=== PATIENT | female | born 1975 | race Caucasian/White ===

== ENCOUNTER 2019-08-18 13:46 | Emergency (ER) | payer SELFPAY ==
[2019-08-18 13:51] VITALS: BP 174/104; PULSE 90; RESP 20; TEMP 36.4; O2SAT 99; BMI 51.5
--- NOTE | 2019-08-18 14:24 | XR_ITS ---
WS: [id number] Portable AP upright chest, 08/18/2019 Clinical Data: admission Comparison: Portable chest, 06/12/2017. Findings: No nodules, masses or effusions are seen. The heart is normal. The pulmonary vascularity is not increased. No pneumonia or pneumothorax is seen. XR/XR chest 1V portable [id number] Impression: Negative chest.
--- NOTE | 2019-08-18 14:35 | ED_ITS ---
Entered by Veronica Couch, acting as scribe for Evonne Klein MD Aug 18, 2019 13:46 HPI - SOB/Dyspnea General: Chief Complaint: Shortness of Breath/Dyspnea Stated Complaint: SOB Time Seen by Provider: 08/18/19 14:35 Source: patient and RN notes reviewed Mode of arrival: ambulatory Limitations: no limitations History of Present Illness: HPI Narrative: 44 yo female presents to ED with complaints of shortness of breath. The patient states she has had this for 4 days intermittently. She said it is when she lays down and she will start gasping for breath. The patient has asthma but has not had to use an inhaler for a while. She said she has been a little nausea, lightheadedness, dizziness and a few pains in her chest. Today the chest pain was very sharp so she decided to come in to the ED. She quit smoking 9 years ago. MD elicited complaint: shortness of breath Pertinent past history: asthma Onset (ago): day(s) (4) Timing: intermittent Severity: moderate Exacerbating factors: lying flat Relieving factors: nothing Known history of: asthma Associated symptoms: Reports chest pain, dizziness, lightheadedness and nausea; Deny fever(s) or polyuria Treatment prior to arrival: none Related Data: Home oxygen amount: none Review of Systems General: Reports: 10 or more systems reviewed and unremarkable except in HPI and below Const: Denies: fever or chills Eyes: Denies: change in vision ENMT: Denies: throat pain Card: Reports: chest pain and lightheadedness GI: Reports: nausea : Denies: difficulty urinating Musc: Denies: muscle weakness Skin/Breast: Denies: rash Neuro: Reports: dizziness Psych: Denies: hopelessness or suicidal ideation Endo: Denies: excessive urination Wilbert/Lymph: Denies: easy bruising or easy bleeding All/Imm: Denies: hives PFSH ED PFSH: Statuses (acute, chronic, etc) shown below reflect problem list status as previously entered and may not be historically accurate Social History Smoking and tobacco status: former smoker Physical Exam Const: COMMON NORMALS: no apparent distress, average body habitus, oriented x3, no limitations, healthy appearing, alert and well nourished HENMT: COMMON NORMALS: normocephalic, external ears normal and external nose normal HEAD & SCALP: normocephalic NOSE: external nose normal EXTERNAL EAR: Yes external ears normal MOUTH: oral and palatal mucosa normal THROAT: posterior oropharynx normal Eye: COMMON NORMALS: PERRL, EOMs intact bilaterally, conjunctivae normal, no scleral icterus and normal visual diaz by confrontation CONJUNCTIVA: Yes conjunctivae normal PUPIL: Yes PERRL Neck/C-Spine: COMMON NORMALS: full ROM, no lymphadenopathy, supple, no meningeal signs and no JVD CERVICAL SPINE: Yes cervical ROM normal Lymph: LYMPHATIC: no lymphadenopathy noted Chest: COMMONS NORMALS: inspection of chest normal Resp: COMMON NORMALS: normal respiratory effort, no retractions, no use of accessory muscles and clear to auscultation bilaterally AUSCULTATION: clear to auscultation bilaterally Cardio: COMMON NORMALS: no JVD, regular rate, regular rhythm, no gallops, no clicks, no murmurs and no rub RATE: regular rate RHYTHM: regular rhythm GI: COMMON NORMALS: normal to inspection, nondistended, normoactive bowel sounds, soft to palpation and non-tender AUSCULTATION: Yes normoactive bowel sounds PALPATION: Yes soft : COMMON NORMALS: Yes no CVA tenderness BLADDER/KIDNEY EXAM: Yes no CVA tenderness Back/Pelvis: COMMON NORMALS: no CVA tenderness Extremity: COMMON NORMALS: normal to inspection Neuro: COMMON NORMALS: oriented x3 SENSORIUM/ORIENTATION: Yes alert MENINGEAL SIGNS: Yes no meningeal signs SPEECH: speech normal Psych: COMMON NORMALS: mental status grossly normal, thought process normal, cooperative, affect normal, speech normal, activity/motor behavior normal, denies hallucinations, denies homicidal ideation and denies suicidal ideation SPEECH: Yes normal speech THOUGHT PROCESS: normal thought process Skin: COMMON NORMALS: no rashes or lesions noted GENERAL SKIN EXAM: no rashes or lesions noted Course Vital Signs: Vital signs: Vital Signs Temperature 97.6 F 08/18/19 13:51 Pulse Rate 77 08/18/19 16:01 Respiratory Rate 18 08/18/19 15:58 Blood Pressure 174/104 08/18/19 13:51 Pulse Oximetry 96 08/18/19 15:58 MDM - SOB/Dyspnea Lab Data: Labs: Lab Results 08/18/19 08/18/19 Range/Units 14:30 14:30 WBC 8.7 (4.0-10.0) 10^3/ uL RBC 4.60 (4.1-5.3) 10^6/u L Hgb 13.1 (11.5-15.3) g/dL Hct 40.5 (37.0-47.0) % MCV 88.0 (81-99) fL MCH 28.5 (28.0-34.0) pg MCHC 32.3 (30.0-36.0) g/dL RDW 13.4 (12.1-15.1) % Plt Count 376 (130-400) 10^3/c mm MPV 8.9 (7.4-10.4) fL Neut % (Auto) 57.1 % Lymph % (Auto) 32.2 % Brule % (Auto) 6.2 % Eos % (Auto) 3.6 % Baso % (Auto) 0.6 % Neut # (Auto) 5.0 (1.8-7.7) 10^3/u L Lymph # (Auto) 2.8 (0.8-4.8) 10^3/u L Brule # (Auto) 0.5 (0.2-0.9) 10^3/u L Eos # (Auto) 0.3 (0.0-0.8) 10^3/u L Baso # (Auto) 0.1 (0.0-0.1) 10^3/u L Nucleated RBC % (a uto) 0 % Nucleated RBCs # 0.0 /100WBC Sodium 142 (136-145) mmol/L Potassium 4.0 (3.5-5.1) mmol/L Chloride 103 (98-107) mmol/L Carbon Dioxide 27 (22-29) mmol/L Anion Gap 16.0 (5-19) BUN 11 (6-20) mg/dL Creatinine 0.7 (0.5-0.9) mg/dL GFR Calculation 91.8 (90-130) mL/min Glucose 115 (65-115) mg/dL Calcium 9.5 (8.5-10.5) mg/dL Total Bilirubin 0.2 (0.15-1.2) mg/dL AST 16 (0-32) U/L ALT 12 (0-33) U/L Alkaline Phosphata se 80 (35-105) IU/L Total Protein 8.0 (6.6-8.7) g/dL Albumin 4.0 (3.5-5.2) g/dL Globulin 4.0 (1.3-4.6) g/dL Imaging Data^: CXR: Radiologist's impression: [address] [place] [address] XRay Report Signed Patient: Kelsi Blankenship #: [id number] : 1975Acct#:[id number] Age/Sex: 44 / FADM Date: 08/18/19 Loc: ERRoom/Bed: Attending Dr: Ordering Provider/Ordering MD: Marian Mcmahan Sr, HEIDI Date of Service: 08/18/19 Procedure(s): XR chest 1V portable [id number] Accession Number(s): [id number] Report Number: [id number] WS: [id number] Portable AP upright chest, 08/18/2019 Clinical Data: admission Comparison: Portable chest, 06/12/2017. Findings: No nodules, masses or effusions are seen. The heart is normal. The pulmonary vascularity is not increased. No pneumonia or pneumothorax is seen. XR/XR chest 1V portable [id number] Impression: Negative chest. Dictated By:Windy Grullon MD Signed By:Windy Grullon MDSigned Date/Time:08/18/19 1450 DD/ Discharge Plan Discharge Patient Disposition: Home, Self-Care Clinical Impression: Viral upper respiratory illness Condition: Stable Prescriptions: No Action No Known Home Medications RF: 0 Referrals: Parag Mcarthur FNP-C [Primary Care Provider] - Patient Instructions: Viral Syndrome - Adult Coding Level of Care Code ED Blood Donor Recruiter for Chg Fwd Exam Problem Focused The documentation recorded by the Khoa shaffer Valerie R, accurately reflects the service I personally performed and the decisions made by Ernie taylor Megan, MD Aug 18, 2019 13:46
[2019-08-18 14:41] LABS: Basophils # 0.1 10^3/uL (0.0-0.1); Basophils % 0.6 %; Eosinophils # 0.3 10^3/uL (0.0-0.8); Eosinophils % 3.6 %; Hematocrit 40.5 % (37.0-47.0); Hemoglobin 13.1 g/dL (11.5-15.3); Lymphocytes # 2.8 10^3/uL (0.8-4.8); Lymphocytes % 32.2 %; Mean Corpuscular HGB Conc 32.3 g/dL (30.0-36.0); Mean Corpuscular Hemoglobin 28.5 pg (28.0-34.0); Mean Platelet Volume 8.9 fL (7.4-10.4); Monocytes # 0.5 10^3/uL (0.2-0.9); Monocytes % 6.2 %; Neutrophils % 57.1 %; Nucleated Red Blood Cells % 0 %; Platelet Count 376 10^3/cmm (130-400); Red Cell Distribution Width 13.4 % (12.1-15.1); White Blood Count 8.7 10^3/uL (4.0-10.0)
[2019-08-18 14:55] VITALS: O2SAT 96
[2019-08-18 14:58] LABS: Alanine Aminotransferase 12 U/L (0-33); Alkaline Phosphatase 80 IU/L (35-105); Aspartate Amino Transferase 16 U/L (0-32); Blood Urea Nitrogen 11 mg/dL (6-20); Calcium 9.5 mg/dL (8.5-10.5); Carbon Dioxide 27 mmol/L (22-29); Chloride 103 mmol/L (98-107); Glomerular Filtration Rate 91.8 mL/min (90-130); Glucose 115 mg/dL (65-115); Sodium 142 mmol/L (136-145); Total Bilirubin 0.2 mg/dL (0.15-1.2)
[2019-08-18 15:58] VITALS: PULSE 74; RESP 18; O2SAT 96
[2019-08-18 16:01] VITALS: PULSE 77
[2019-08-18 16:45] VITALS: BP 166/90; PULSE 78; RESP 20; O2SAT 98
--- NOTE | 2019-09-08 | PC.NURSE ---
Mode wrap applied to left knee and patient educated on RICE method.
== END 2019-08-18 16:45 | disposition home or self-care (01) ==
PROVIDERS: Nurse Practitioner Family; Emergency Provider Emergency Medicine; Family Provider Nurse Practitioner; PCP Nurse Practitioner
DX: J98.8 Other specified respiratory disorders (principal); J45.909 Unspecified asthma, uncomplicated; Z87.891 Personal history of nicotine dependence
CPT/HCPCS: 36415; 71045; 80053; 85025; 94640; 99282; 99283; J7611

== ENCOUNTER 2019-09-07 18:41 | Emergency (ER) | payer SELFPAY ==
[2019-09-07 19:10] VITALS: BP 163/109; PULSE 74; RESP 18; TEMP 36.7; O2SAT 96; BMI 51.5
--- NOTE | 2019-09-07 19:27 | XR_ITS ---
WS: [id number] XR knee LT 3V* [id number] REASON FOR EXAM: injury FINDINGS: The meniscal spaces are normal. The patella was seen in normal position. The patella femoral articulation normal. The patellotibial space normal. No definite fractures seen. XR/XR knee LT 3V* [id number] IMPRESSION: Negative left knee.
--- NOTE | 2019-09-07 23:03 | W.ED.EXTPRO ---
HPI - Extremity Problem General: Chief complaint: Extremity Problem,Nontraumatic Stated complaint: LEFT LEG INJURY Time Seen by Provider: 09/07/19 22:59 History of Present Illness: HPI Narrative: Patient comes in today with left knee pain. Patient reports slipping on the ice yesterday and twisting her left knee. Patient has had previous surgery to the knees for ligament injuries. Patient appears well. No obvious deformity is noted to the leg. MD Complaint: extremity pain Review of Systems General: Reports: 10 or more systems reviewed and unremarkable except in HPI and below PFSH ED PFSH: Social History Smoking and tobacco status: former smoker Female Reproductive History: Date of last menstrual period: 09/27/04 Physical Exam Const: COMMON NORMALS: no apparent distress and oriented x3 GENERAL APPEARANCE: cooperative HENMT: COMMON NORMALS: normocephalic, external ears normal, EAC's normal, TM's normal bilaterally and external nose normal HEAD & SCALP: normal to inspection and normocephalic FACE & SINUS: normal facial exam NOSE: external nose normal GENERAL EAR: hearing not grossly impaired EXTERNAL EAR: Yes external ears normal EXTERNAL AUDITORY CANAL: EAC's normal TYMPANIC MEMBRANE: TM's normal bilaterally MOUTH: oral and palatal mucosa normal THROAT: posterior oropharynx normal Eye: COMMON NORMALS: PERRL and EOMs intact bilaterally PUPIL: Yes PERRL Neck/C-Spine: COMMON NORMALS: full ROM and no lymphadenopathy Lymph: LYMPHATIC: no lymphedema noted Chest: COMMONS NORMALS: inspection of chest normal and palpation of chest normal Resp: COMMON NORMALS: normal respiratory effort and clear to auscultation bilaterally AUSCULTATION: clear to auscultation bilaterally Cardio: COMMON NORMALS: regular rate and regular rhythm RATE: regular rate RHYTHM: regular rhythm GI: COMMON NORMALS: normal to inspection, nondistended, normoactive bowel sounds and non-tender : COMMON NORMALS: Yes no CVA tenderness BLADDER/KIDNEY EXAM: Yes no CVA tenderness Back/Pelvis: COMMON NORMALS: no CVA tenderness and thoracic and lumbar spine normal to inspection Extremity: NARRATIVE EXTREMITY EXAM: Guarded movement is noted to the left knee. Patient is able to manipulate leg without any sign of weakness. Normal stability is noted to the leg. Patella is intact. No obvious deformity is noted. GENERAL: Yes edema Neuro: COMMON NORMALS: oriented x3, moves all extremities and no focal motor deficits Psych: COMMON NORMALS: mental status grossly normal and cooperative Skin: COMMON NORMALS: no rashes or lesions noted GENERAL SKIN EXAM: no rashes or lesions noted Course Vital Signs: Vital signs: Vital Signs Temperature 98.1 F 09/07/19 19:10 Pulse Rate 74 09/07/19 19:10 Respiratory Rate 18 09/07/19 19:10 Blood Pressure 163/109 09/07/19 19:10 Pulse Oximetry 96 09/07/19 19:10 MDM - Extremity (Nontraumatic) MDM Narrative: Medical decision making narrative: Patient comes in after injury to the left knee. On exam patient appears well. Patient appears in no acute distress. No obvious deformity is noted to the leg. Some simple bruising is noted to the inner thigh. No redness or edema is noted. Differential diagnosis includes sprain, meniscal injury, ligament injury, fracture. X-rays noted no fracture or dislocation. Reviewed exam with patient with recommendations for treatment follow-up. Patient reports understanding and agreed to plan. Discharge Plan Discharge Patient Disposition: Home, Self-Care Clinical Impression: Injury of knee, left Qualifiers: Encounter type: initial encounter Qualified Code(s): S89.92XA - Unspecified injury of left lower leg, initial encounter Condition: Stable Prescriptions: New diclofenac sodium 75 mg tablet,delayed release (DR/EC) 75 mg PO BID Qty: 14 RF: 0 hydrocodone-acetaminophen 5-325 mg tablet 1 tab PO Q6H PRN (Reason: pain (scale score 7-10)) Qty: 7 RF: 0 Discharge Orders: Discharge Order (Routine); Ordered 09/07/19 Ordered By: Vito Perkins Referrals: Parag Mcarthur, OUTPATIENT THERAPISTClarisseC [Primary Care Provider] - Discharge Diet: Usual diet Discharge Activity: Increase activity as tolerated Patient Instructions: Knee Sprain (ED) Activity Restrictions/Additional Instructions: Activity as tolerated Elastic wrap for comfort Use Crutches or walker for ambulation Drink plenty of water with medications Follow-up with primary care in one week for recheck Coding Level of Care Code ED Interrelated Special Education Teacher for Deondre Mc
[2019-09-07] MEDS: ketorolac 30 mg/mL INJ IM (23:13)
[2019-09-07] MEDS: HYDROcodone-acetaminophen 5-325 mg Tablet 1 TAB PO (23:13)
[2019-09-07 23:57] VITALS: BP 142/96; PULSE 69; RESP 18; TEMP 36.5; O2SAT 95
== END 2019-09-07 23:40 | disposition home or self-care (01) ==
PROVIDERS: Emergency Provider Nurse Practitioner Family; Family Provider Nurse Practitioner; PCP Nurse Practitioner
DX: S89.92XA Unspecified injury of left lower leg, initial encounter (principal); Z87.891 Personal history of nicotine dependence; Z98.890 Other specified postprocedural states; W00.0XXA Fall on same level due to ice and snow, initial encounter
CPT/HCPCS: 73562; 96372; 99281; 99283; J1885

== ENCOUNTER 2020-03-24 11:29 | Emergency (ER) | payer SELFPAY ==
[2020-03-24 11:44] VITALS: BP 139/105; PULSE 90; RESP 18; TEMP 37.1; O2SAT 95; BMI 51.5
[2020-03-24] MEDS: diphenhydrAMINE 50 mg/mL SDV 1mL IVP (12:20)
[2020-03-24] MEDS: ketorolac 30 mg/mL INJ 10 MG IVP (12:21)
[2020-03-24] MEDS: metoclopramide 5 mg/mL SDV 2 mL 10 MG IV (12:21)
[2020-03-24] MEDS: sodium chloride 0.9% 1,000 ML 999 ML IV (12:21)
--- NOTE | 2020-03-24 12:29 | ED_ITS ---
HPI - Headache General: Chief Complaint: Headache Stated Complaint: H/A Time Seen by Provider: 03/24/20 11:43 Source: patient Mode of arrival: ambulatory Limitations: no limitations History of Present Illness: HPI Narrative: Kelsi is a nice 44-year-old female who comes in complaining of headache for the past 3 days. She states this feels like her typical migraine. She states it came on gradually and was not a sudden onset thunderclap type headache. She denies any neck pain or stiffness or fever. She has photophobia and phonophobia. She has nausea vomiting with these typically but this time is not. This headache is been present for the past 3 days and is getting progressively worse. Patient is had to come to the ER before to get IV medication to resolve her headaches. Currently the patient states that her headache is severe and has been waxing and waning in intensity for the past 3 days. Associated symptoms: Deny chest pain, confusion, diaphoresis, fever(s), lightheadedness, malaise, nausea, pre-syncope, rash, syncope or vomiting Review of Systems Const: Denies: fever(s), chills, body aches, fatigue, malaise or diaphoresis Eyes: Denies: change in vision, blurry vision, photophobia, eye discomfort, eye discharge, eye redness or yellow eyes ENMT: Denies: throat pain, odynophagia, hoarseness, swelling of lips/tongue, ear or mastoid pain, ear discharge, change in hearing or nasal discharge Card: Denies: chest pain, palpitations, irregular heart rhythm, edema, lightheadedness, syncope, pre-syncope, dyspnea on exertion or orthopnea Resp: Denies: dyspnea, productive cough, non-productive cough, wheezing, hemoptysis or chest congestion GI: Denies: abdominal pain, nausea, vomiting, hematemesis, coffee ground emesis, heartburn, diarrhea, constipation, GI cramping, hematochezia or melena : Denies: flank pain, dysuria, urinary frequency, urinary urgency or hemat uria Musc: Denies: neck pain, back pain, extremity pain, extremity swelling, joint pain, joint swelling, joint redness, joint warmth or joint stiffness Skin/Breast: Denies: rash, pruritus, erythema, skin pain or skin tenderness Neuro: Reports: headache(s); Denies: numbness in extremities, weakness in extremities, sensory changes, lack of coordination, difficulty walking, dizziness, vertigo, confusion, Slurred speech present or seizure-like activity Wilbert/Lymph: Denies: easy bruising, easy bleeding, petechiae, purpura or enlarged lymph nodes All/Imm: Denies: urticaria, throat swelling, tongue swelling, facial swelling or acute wheezing PFSH ED PFSH: Medical History (Updated 03/24/20 @ 12:59 by Mel Spaulding) Migraines Social History Smoking and tobacco status: former smoker Female Reproductive History: Date of last menstrual period: 09/27/04 Physical Exam Const: COMMON NORMALS: no acute distress, patient oriented x3, no limitations and alert GENERAL APPEARANCE: cooperative HENMT: COMMON NORMALS: normocephalic, atraumatic, external ears normal, EAC's normal and Normal external nose present HEAD & SCALP: normal to inspection, normocephalic and atraumatic FACE & SINUS: normal facial exam and face symmetric NOSE: Normal external nose present and Normal nares present EXTERNAL EAR: Yes external ears normal EXTERNAL AUDITORY CANAL: EAC's normal MOUTH: Normal oral and palatal mucosa present, lip normal and tongue normal Eye: COMMON NORMALS: Equal, round and reactive pupils present and conjunctivae normal GENERAL EYE: appearance normal, both eyes and all related structures ALIGNMENT: Yes alignment normal PERIORBITAL: periorbital findings normal EYELID: eyelids normal CONJUNCTIVA: Yes conjunctivae normal SCLERA: sclerae normal PUPIL: Yes Equal, round and reactive pupils present Neck/C-Spine: COMMON NORMALS: full ROM, no lymphadenopathy, supple, no meningeal signs and no JVD GENERAL: Yes normal visual inspection and Yes trachea midline Chest: COMMONS NORMALS: normal inspection of the chest and normal palpation of entire chest wall Resp: COMMON NORMALS: normal respiratory effort, No retractions, No use of accessory muscles and clear to auscultation bilaterally EFFORT & INSPECTION: Yes able to speak in complete sentences and Yes symmetric chest movement AUSCULTATION: clear to auscultation bilaterally, no crackles, no rales, no rhonchi and no wheezes Cardio: COMMON NORMALS: no JVD, regular rate, regular rhythm, S1 normal heart sound present and S2 normal heart sound present RATE: regular rate RHYTHM: regular rhythm HEART SOUNDS: S1 normal heart sound present, S2 normal heart sound present, no click, no gallops, no murmurs and no rubs GI: COMMON NORMALS: Soft to palpation and No hepatosplenomegaly present PALPATION: Yes Soft to palpation, No Tenderness to palpation present (GI), No Guarding due to palpation present (GI), No Rigid due to palpation, Yes No hepatosplenomegaly present, No Hernia present, No Palpable mass present and No Pulsatile mass present : COMMON NORMALS: Yes no CVA tenderness BLADDER/KIDNEY EXAM: Yes no CVA tenderness EXTERNAL FEMALE EXAM: No Hernia present Back/Pelvis: COMMON NORMALS: no CVA tenderness, thoracic and lumbar spine normal to inspection, no thoracic nor lumbar tenderness and thoraco-lumbar ROM normal Extremity: COMMON NORMALS: normal to inspection, full ROM, capillary refill n ormal, no joint enlargement, no clubbing, cyanosis or edema and no calf tenderness Neuro: COMMON NORMALS: patient oriented x3, CN's II-XII intact bilaterally, moves all extremities, no focal motor deficits and no sensory deficits noted SENSORIUM/ORIENTATION: Yes alert MENINGEAL SIGNS: Yes no meningeal signs SPEECH: speech normal Psych: COMMON NORMALS: mental status grossly normal, Normal thought process present, cooperative, normal affect, speech normal and activity/motor behavior normal SPEECH: Yes normal speech THOUGHT PROCESS: Normal thought process present Skin: COMMON NORMALS: no rashes or lesions noted, turgor normal, no jaundice, no petechiae and no mottling GENERAL SKIN EXAM: no rashes or lesions noted and turgor normal Course Vital Signs: Vital signs: Vital Signs Temperature 98.7 F 03/24/20 11:44 Pulse Rate 90 03/24/20 11:44 Respiratory Rate 18 03/24/20 11:44 Blood Pressure 139/105 03/24/20 11:44 Pulse Oximetry 95 03/24/20 11:44 MDM - Headache MDM Narrative: Medical decision making narrative: 1256 -patient is feeling much better and is ready to go home. Her headache is almost completely resolved. Patient does not present with a history or physical exam concerning for subarachnoid hemorrhage or meningitis. Patient has recurrent headache that feels like her typical migraines. The patient did not had a sudden onset thunderclap type headache and does not have any neck pain or stiffness. Her symptoms have resolved with typical migraine medications. I do not believe the patient needs any further evaluation at this time as there is no fever, no rashes or concern for subarachnoid hemorrhage based on history. Discharge Plan Discharge Patient Disposition: Home Clinical Impression: Migraines Qualifiers: Migraine type: unspecified Status migrainosus presence: with status migrainosus Intractability: not intractable Qualified Code(s): G43.901 - Migraine, unspecified, not intractable, with status migrainosus Condition: Stable Prescriptions: No Action Tylenol Extra Strength 500 mg Tablet 1,000 mg PO PRN RF: 0 Aleve 220 mg Tablet 440 mg PO PRN RF: 0 Discharge Orders: Discharge Order (Routine); Ordered 03/24/20 Ordered By: Mel Spaulding Referrals: Parag Mcarthur, DIRECTOR FUNDRAISING-C [Primary Care Provider] - 1-3 days Discharge Diet: Advance as tolerated Discharge Activity: Increase activity as tolerated Patient Instructions: Migraine Headache (ED) Activity Restrictions/Additional Instructions: Please return to the ER immediately for any of the signs or symptoms listed on your discharge instruction sheets, worsening/changing of your symptoms, you are not getting better as quickly as expected, or for ANY other cause or concerns. Coding Level of Care Code ED Tape Stringer for [place]herg Fwd Exam Comprehensive
[2020-03-24 13:30] VITALS: BP 121/79; PULSE 80; RESP 18; O2SAT 99
== END 2020-03-24 13:30 | disposition home or self-care (01) ==
PROVIDERS: Emergency Provider Emergency Medicine; PCP Nurse Practitioner
DX: G43.901 Migraine, unspecified, not intractable, with status migrainosus (principal); Z87.891 Personal history of nicotine dependence
CPT/HCPCS: 12345; 96361; 96374; 96375; 99282; 99283; J0131; J1200; J1885; J2765; J7030

== ENCOUNTER 2022-05-30 12:05 | Inpatient (IN) | payer SELFPAY ==
[2022-05-30 12:51] VITALS: BP 119/73; PULSE 78; RESP 15; TEMP 36.8; O2SAT 97
--- NOTE | 2022-05-30 15:28 | CTR_ITS ---
PROCEDURE INFORMATION: Exam: CT Abdomen And Pelvis With Contrast Exam date and time: 05/30/2022 4:32 PM Age: 46 years old Clinical indication: Nausea; Prior surgery; Additional info: Right sided abdominal pain, with nausea TECHNIQUE: Imaging protocol: Computed tomography of the abdomen and pelvis with contrast. Radiation optimization: All CT scans at this facility use at least one of these dose optimization techniques: automated exposure control; mA and/or kV adjustment per patient size (includes targeted exams where dose is matched to clinical indication); or iterative reconstruction. Contrast material: OMNIPAQUE 350; Contrast volume: 95 ml; Contrast route: INTRAVENOUS (IV); COMPARISON: CT chest abd pel w con* 06/12/2017 9:53 PM RADIATION DOSE METRICS: Total DLP (mGy-cm): 1249.86 FINDINGS: Lungs: There are calcified granulomas at the lung bases. Liver: There is focal hypodensity in the left lobe of the liver adjacent to the falciform ligament, likely focal fatty change. There is mild enlargement of the liver. Liver measures 21 cm in height. Gallbladder and bile ducts: There is borderline gallbladder wall thickening measuring just over 3 mm. Pancreas: The pancreas is normal. Spleen: The spleen is normal. Adrenal glands: The adrenal glands are normal. Kidneys and ureters: The kidneys are normal. There is no evidence of hydronephrosis. There is no evidence of renal or ureteral calcifications. Stomach and bowel: Unremarkable. No obstruction. No mucosal thickening. Appendix: Not identified Intraperitoneal space: There is no evidence of free intraperitoneal fluid. Vasculature: There is no evidence of an abdominal aortic aneurysm. Lymph nodes: There is no evidence of lymphadenopathy. Urinary bladder: Unremarkable as visualized. Reproductive: There has been a hysterectomy. There is probable 1.6 cm sized right adnexal cyst. Bones/joints: There is multilevel spinal stenosis. The lumbar spine demonstrates moderate degenerative changes at multiple levels. The stenosis is most severe at the L4-L5 level. Soft tissues: There is a small umbilical hernia containing only fat. Other findings: Compared with 06/12/2017 the patient appears to have a significant weight loss. CT/CT abdomen pelvis w con* [id number] IMPRESSION: 1. Question of mild gallbladder wall thickening 2. Lumbar stenosis 3. No definite acute finding.
--- NOTE | 2022-05-30 15:35 | W.ED.ABDPA2 ---
HPI - Abdominal Pain General: Chief Complaint: Abdominal Pain Stated Complaint: abd pain Time Seen by Provider: 05/30/22 15:00 History of Present Illness: 46-year-old female presents emergency department chief complaint of ongoing right upper and right lower abdominal pain has been ongoing progressively worse last couple of days she reports having some moderate nausea with it and anorexia reports no fevers or chills. The patient reports no back pain or flank pain or any dysuria, the patient presents to the ER for further assessment and management. Associated Symptoms: Reports nausea; Denies chills and fever(s) Related Data: Date of Last Menstrual Period: 09/27/04 Review of Systems General: Reports: 10 or more systems reviewed and unremarkable except in HPI and below Const: Denies: fever(s), chills, fatigue or malaise Eyes: Denies: change in vision or blurry vision Card: Denies: chest pain or palpitations Resp: Denies: dyspnea or productive cough GI: Reports: abdominal pain and nausea : Denies: flank pain Musc: Denies: extremity pain or extremity swelling Skin/Breast: Denies: rash or pruritus Neuro: Denies: headache(s) Psych: Denies: anxiety or depression Wilbert/Lymph: Denies: easy bleeding All/Imm: Denies: urticaria, throat swelling or facial swelling PFSH ED PFSH: Medical History Migraines Social History Smoking and tobacco status: former smoker Female Reproductive History: Date of last menstrual period: 09/27/04 Physical Exam Const: COMMON NORMALS: no acute distress, patient oriented x3 and healthy appearing HENMT: COMMON NORMALS: normocephalic and atraumatic HEAD & SCALP: normocephalic and atraumatic Eye: COMMON NORMALS: Equal, round and reactive pupils present and EOMs intact bilaterally PUPIL: Yes Equal, round and reactive pupils present Neck/C-Spine: COMMON NORMALS: full ROM, supple and no JVD Lymph: LYMPHATIC: no lymphadenopathy noted Chest: COMMONS NORMALS: normal inspection of the chest and normal palpation of entire chest wall Resp: COMMON NORMALS: normal respiratory effort, No retractions and clear to auscultation bilaterally EFFORT & INSPECTION: Yes able to speak in complete sentences and Yes symmetric chest movement AUSCULTATION: clear to auscultation bilaterally Cardio: COMMON NORMALS: no JVD, regular rate and regular rhythm RATE: regular rate RHYTHM: regular rhythm GI: OTHER: Patient has appreciable right upper quadrant right lower quadrant abdominal pain positive McBurney's point tenderness and Gunn's sign appreciated. No rebound tenderness noted. : COMMON NORMALS: Yes no CVA tenderness BLADDER/KIDNEY EXAM: Yes no CVA tenderness Back/Pelvis: COMMON NORMALS: no CVA tenderness Extremity: COMMON NORMALS: normal to inspection and full ROM Neuro: COMMON NORMALS: patient oriented x3, CN's II-XII intact bilaterally, moves all extremities and no focal motor deficits Psych: COMMON NORMALS: mental status grossly normal, Normal thought process present, cooperative and normal affect THOUGHT PROCESS: Normal thought process present Skin: COMMON NORMALS: no rashes or lesions noted GENERAL SKIN EXAM: no rashes or lesions noted Course Vital Signs: Vital signs: Vital Signs Temperature 98.3 F 05/30/22 12:51 Pulse Rate 78 05/30/22 12:51 Respiratory Rate 15 05/30/22 12:51 Blood Pressure 119/73 05/30/22 12:51 Pulse Oximetry 97 05/30/22 12:51 Oxygen Delivery Me thod 05/30/22 12:51 MDM - Abdominal Pain Medical Decision Making Due to the patient's symptoms and condition lab work imaging will be obtained medication provided for the patient associated symptoms we will continue to follow patient's lab work came back reassuring no obvious white count elevation lipase or transaminases or total bilirubin. However there was some gallbladder wall thickening which is recommended by radiology to get an ultrasound to further rule out gallbladder disease. The patient's ultrasound did reveal a positive Gunn sign gallbladder wall thickening as well as gallstones suggestive of early acute cholecystitis. Discussed the patient's case with Dr. Mancia on-call general surgeon in which there is recommended 2 different options patient could subsequently follow-up outpatient with him for further eval with a 10-day course of antibiotics or patient could be subsequently admitted. I spoke to the patient at length she is currently homeless with no place to go does not have any money for antibiotics in which she additionally has no social resources availability to her. Or transportation options. At this time due to multiple social roadblocks the patient is best well served to be admitted to the hospital for further evaluation and management. Lab Data 05/30/22 16:18 05/30/22 16:18 Labs/Radiology: Radiology Impressions Abdomen/Pelvis CT 05/30/22 15:28 IMPRESSION: 1. Question of mild gallbladder wall thickening 2. Lumbar stenosis 3. No definite acute finding. Abdomen Ultrasound 05/30/22 19:02 IMPRESSION: 1. Two gallstones. Findings suspicious for cholecystitis. 2. Mild fatty infiltration of the liver. 3. Incidental/nonacute findings are listed in the report. Laboratory Results WBC 7.6 10^3/uL (4.0-10.0) 05/30/22 16:18 RBC 4.68 10^6/uL (4.1-5.3) 05/30/22 16:18 Hgb 13.9 g/dL (11.5-15.3) 05/30/22 16:18 Hct 41.9 % (37.0-47.0) 05/30/22 16:18 MCV 89.5 fl (81-99) 05/30/22 16:18 MCH 29.7 pg (28.0-34.0) 05/30/22 16:18 MCHC 33.2 g/dL (30.0-36.0) 05/30/22 16:18 RDW 14.0 % (12.1-15.1) 05/30/22 16:18 Plt Count 380 10^3/cmm (130-400) 05/30/22 16:18 MPV 9.7 fL (7.4-10.4) 05/30/22 16:18 Neut % (Auto) 56.7 % 05/30/22 16:18 Lymph % (Auto) 33.0 % 05/30/22 16:18 [place] % (Auto) 7.5 % 05/30/22 16:18 Eos % (Auto) 2.0 % 05/30/22 16:18 Baso % (Auto) 0.5 % 05/30/22 16:18 Neut # (Auto) 4.34 10^3/uL (1.8-7.7) 05/30/22 16:18 Lymph # (Auto) 2.5 10^3/uL (0.8-4.8) 05/30/22 16:18 [place] # (Auto) 0.6 10^3/uL (0.2-0.9) 05/30/22 16:18 Eos # (Auto) 0.2 10^3/uL (0.0-0.8) 05/30/22 16:18 Baso # (Auto) 0.0 10^3/uL (0.0-0.1) 05/30/22 16:18 Nucleated RBC % (auto) 0 % 05/30/22 16:18 Nucleated RBCs # 0.0 /100WBC 05/30/22 16:18 Sodium 138 mmol/L (136-145) 05/30/22 16:18 Potassium 4.0 mmol/L (3.5-5.1) 05/30/22 16:18 Chloride 101 mmol/L (98-107) 05/30/22 16:18 Carbon Dioxide 28 mmol/L (22-29) 05/30/22 16:18 Anion Gap 13.0 (5-19) 05/30/22 16:18 BUN 7 mg/dL (6-20) 05/30/22 16:18 Creatinine 0.6 mg/dL (0.5-0.9) 05/30/22 16:18 GFR Calculation 108.6 mL/min (90-130) 05/30/22 16:18 Glucose 87 mg/dL (65-115) 05/30/22 16:18 Calculated Osmolality 283 mOsm/kg (285-295) L 05/30/22 16:18 Calcium 9.5 mg/dL (8.5-10.5) 05/30/22 16:18 Total Bilirubin 0.5 mg/dL (0.15-1.2) 05/30/22 16:18 AST 10 U/L (0-32) 05/30/22 16:18 ALT < 5 U/L (0-33) 05/30/22 16:18 Alkaline Phosphatase 84 U/L (35-105) 05/30/22 16:18 C-Reactive Protein 5.8 mg/L (0.0-4.9) H 05/30/22 16:18 Total Protein 7.9 g/dL (6.6-8.7) 05/30/22 16:18 Albumin 3.8 g/dL (3.5-5.2) 05/30/22 16:18 Globulin 4.1 g/dL (1.3-4.6) 05/30/22 16:18 Lipase 21 U/L (13-60) 05/30/22 16:18 HCG, Qual Negative (Negative) 05/30/22 16:18 Urine Color Brooke (Yellow) 05/30/22 15:50 Urine Appearance Clear (CLEAR) 05/30/22 15:50 Urine pH 5 (5-7) 05/30/22 15:50 Ur Specific [place] 1.025 (1.005-1.030) 05/30/22 15:50 Urine Protein Trace (Negative) 05/30/22 15:50 Urine Glucose (UA) Norm (Normal) 05/30/22 15:50 Urine Ketones Negative (Negative) 05/30/22 15:50 Urine Blood Neg (Negative) 05/30/22 15:50 Urine Nitrate Negative (Negative) 05/30/22 15:50 Urine Bilirubin Neg (Negative) 05/30/22 15:50 Urine Urobilinogen Norm mg/dL (Negative) 05/30/22 15:50 Ur Leukocyte Esterase Negative (Negative) 05/30/22 15:50 Urine RBC None /hpf (0-2) 05/30/22 15:50 Urine WBC None /hpf (0-5) 05/30/22 15:50 Ur Squamous Epith Cells None /hpf (0-5) 05/30/22 15:50 Amorphous Sediment Not Reportable 05/30/22 15:50 Urine Bacteria Trace /hpf (NONE) 05/30/22 15:50 Discharge Plan Discharge Patient Disposition: Admitted As Inpatient Clinical Impression: Cholecystitis, Abdominal pain Condition: Stable Coding Level of Care Code ED Wound Care Specialist for Chg Fwd Exam Comprehensive
[2022-05-30] MEDS: sodium chloride 0.9% 500 ML IV (16:14)
[2022-05-30] MEDS: ondansetron 2 mg/ML SDV 2 mL 4 MG IVP (16:15)
[2022-05-30] MEDS: ketorolac 30 mg/mL INJ IVP (16:15)
[2022-05-30 16:32] LABS: Basophils % 0.5 %; Eosinophils # 0.2 10^3/uL (0.0-0.8); Hematocrit 41.9 % (37.0-47.0); Hemoglobin 13.9 g/dL (11.5-15.3); Lymphocytes # 2.5 10^3/uL (0.8-4.8); Mean Corpuscular HGB Conc 33.2 g/dL (30.0-36.0); Mean Corpuscular Hemoglobin 29.7 pg (28.0-34.0); Mean Corpuscular Volume 89.5 fl (81-99); Mean Platelet Volume 9.7 fL (7.4-10.4); Monocytes # 0.6 10^3/uL (0.2-0.9); Monocytes % 7.5 %; Neutrophils # 4.34 10^3/uL (1.8-7.7); Neutrophils % 56.7 %; Nucleated Red Blood Cells % 0 %; Platelet Count 380 10^3/cmm (130-400); Red Blood Count 4.68 10^6/uL (4.1-5.3); White Blood Count 7.6 10^3/uL (4.0-10.0)
[2022-05-30 16:35] LABS: Add Urine Culture? No; Add Urine Microscopic? YES; Bacteria Urine TRACE /hpf; Bilirubin Urine Neg (Negative); Blood Urine Neg (Negative); Glucose Urine UA Norm (Normal); Ketones Urine Negative (Negative); Leukocyte Esterase Urine Negative (Negative); Nitrate Urine Negative (Negative); Protein Urine Trace (Negative); Specific Gravity, Urine 1.025 (1.005-1.030); Urine Appearance Clear (CLEAR); Urine Color Amber (Yellow); Urobilinogen Urine Norm (Negative); pH Urine 5 (5-7)
[2022-05-30 16:46] LABS: HCG, Serum Qual Negative (Negative)
[2022-05-30 16:55] LABS: Alanine Aminotransferase < 5 U/L (0-33); Albumin Level 3.8 g/dL (3.5-5.2); Alkaline Phosphatase 84 U/L (35-105); Aspartate Amino Transferase 10 U/L (0-32); Blood Urea Nitrogen 7 mg/dL (6-20); C Reactive Protein 5.8 mg/L (0.0-4.9); Calcium 9.5 mg/dL (8.5-10.5); Carbon Dioxide 28 mmol/L (22-29); Chloride 101 mmol/L (98-107); Globulin 4.1 g/dL (1.3-4.6); Glomerular Filtration Rate 108.6 mL/min (90-130); Glucose 87 mg/dL (65-115); Lipase 21 U/L (13-60); Osmolality Calculated 283 mOsm/kg (285-295); Sodium 138 mmol/L (136-145); Total Bilirubin 0.5 mg/dL (0.15-1.2); Total Protein 7.9 g/dL (6.6-8.7)
[2022-05-30] MEDS: iohexol 350 mg/mL 500 mL Btl (per mL) IV (16:58)
--- NOTE | 2022-05-30 19:02 | USR_ITS ---
PROCEDURE INFORMATION: Exam: US Abdomen, Limited; Right Upper Quadrant Exam date and time: 05/30/2022 7:16 PM Age: 46 years old Clinical indication: Abdominal pain; Patient HX: Chronic ruq pain x 6 months, intermittently, worse last 2 days. Surgical HX includes appy at age 16, hysterectomy, csections; Additional info: Gallbladder wall thickening on CT TECHNIQUE: Imaging protocol: Real time ultrasound of the abdomen with image documentation. Limited exam focused on the right upper quadrant. COMPARISON: CT abdomen pelvis w con* [id number] 05/30/2022 4:32 PM FINDINGS: Liver: Mildly increased echotexture in the liver, consistent with mild fatty infiltration. Gallbladder: 2 stones in the gallbladder with posterior shadowing, each stone measures 1.3 cm. Mild gallbladder wall thickening, the gallbladder wall measures 3.8 mm. No pericholecystic fluid. There is a positive sonographic Gunn's sign per report from the cardiovascular technologist. Biliary ducts: Normal. No stones. No dilation. Pancreas: The pancreas is unremarkable. No pancreatic ductal dilatation. Right kidney: The right kidney is unremarkable. Aorta: Visualized aorta is unremarkable. Inferior vena cava: Visualized IVC is unremarkable. Portal venous: Hepatopetal flow in the portal vein. Intraperitoneal space: No ascites. US/US abdomen limited [id number] IMPRESSION: 1. Two gallstones. Findings suspicious for cholecystitis. 2. Mild fatty infiltration of the liver. 3. Incidental/nonacute findings are listed in the report.
[2022-05-30] MEDS: piperacillin-tazobactam 3.375 GM in sodium chloride 0.9% (plus) 50 ML IV (21:54)
[2022-05-30 22:30] VITALS: BP 130/84; PULSE 80; RESP 16; O2SAT 98
[2022-05-31] VITALS (9 sets, daily range): BP systolic 114–152; BP diastolic 66–100; PULSE 66–83; RESP 16–20; TEMP 36.4–36.8; O2SAT 95–100; BMI 40.1
--- NOTE | 2022-05-31 00:53 | PC.NURSE ---
Report taken from Summer in ED. Patient arrived on floor at 2310 via wheelchair with three bags, one with a galaxy design, one blue and one pink bags; patient wearing own clothes. Patient A&O, VSS. 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 Patient states that she has been homeless for one year after leaving her . Patient also states that she has been depressed and has had thoughts of suicide in the past. Upon investigation, patient also states that she has struggled with drug addiction but states she is trying to stay clean. Patient upset because she states she hasn't had a meal in two days, but is currently NPO per doctor orders. Patient has been educated to use call light. Bed locked in lowest position, side rails up, and call light within reach. Patient states no further needs at this time.
[2022-05-31] MEDS: dextrose 5%-sod chloride 0.9% 1,000 ML 100 ML IV ×3 (01:31→15:43)
[2022-05-31] MEDS: morphine 4 mg/mL SDV 1 mL 2 MG IVP (03:02)
[2022-05-31] MEDS: piperacillin-tazobactam 3.375 GM in sodium chloride 0.9% (plus) 50 ML IV ×2 (08:29→17:48)
[2022-05-31] MEDS: morphine 4 mg/mL SDV 1 mL IVP (08:41)
--- NOTE | 2022-05-31 11:03 | P.HP_ITS ---
Providers/Chief Complaint Admitting Physician: Silverio Mancia DO Chief Complaint: abd pain History of Present Illness Kelsi Blankenship is a 46 year old female presenting the hospital with a 1 day history of right upper quadrant abdominal pain. She reports that she has been getting Attacks like this for the last 6 months. She denies any nausea, emesis, diarrhea, constipation, fever, chills, hematochezia or melena. Pain is sharp and located in the right upper quadrant. Pain does not radiate. Narcotics make the pain better food makes the pain worse. She is homeless. Review of Systems General: Reports: 10 or more systems reviewed and unremarkable except in HPI and below Medications/Allergies Home Medications Medication Instructions Recorded Confirmed Last Taken Type acetaminophen 500 mg tablet 1,000 mg PO PRN PRN Pain 03/24/20 05/30/22 05/30/22 History (Tylenol Extra Strength) naproxen sodium 220 mg tablet 440 mg PO PRN PRN Pain 03/24/20 05/30/22 Unknown History (Aleve) Allergies Allergy/AdvReac Type Severity Reaction Status Date / Time No Known Allergies Allergy Verified 05/30/22 15:25 PFSH Acute PFSH: Medical History Migraines Surgical History H/O: hysterectomy Hx of appendectomy Social History Smoking and tobacco status: former smoker Female Reproductive History: Date of last menstrual period: 09/27/04 Vitals/I&O/Wt Last Vital Signs Temp 97.7 F 05/31/22 08:00 Pulse 66 05/31/22 08:00 Resp 18 05/31/22 08:41 BP 117/71 05/31/22 08:00 Pulse Ox 96 05/31/22 08:00 O2 Del Method 05/31/22 08:00 05/30/22 05/31/22 05/31/22 22:59 06:59 14:59 Intake Total 550 / 550 0 / 550 400 / 400 Output Total 0 / 0 Balance 550 / 550 0 / 550 400 / 400 Weight last 48 hrs Weight 234 lb Weight 200 lb Physical Exam Narrative: General : Patient is well developed , no acute distress, oriented x3 Head : Normal cephalic, a-traumatic. Ears : Pinnae and external canal are normal. Hearing is normal. Eyes : PERRLA, Sclera and injection are normal. No conjunctival discharge. Nose : Mucous membranes are without erythema. Throat : buccal mucosa is normal, gums are without significant recession or hypertrophy. Lungs : Equal chest rise bilaterally, no use of accessory muscles, trachea is midline. Cor : Rate and rhythm are normal. Abdomen : Soft, ND, mild right upper quadrant tenderness, no g/r/m Extremities : No edema, no cyanosis or clubbing, dorsalis pedis pulses are present bilaterally, non-tender to palpation of calves. Upper extremities are normal bilaterally. Back : non-tender to palpation, no CVA tenderness. Neuro : CN II - XII intact, Upper and lower extremities have equal and full strength Data 05/30/22 16:18 05/30/22 16:18 A&P Assessment and plan (1) Acute calculous cholecystitis: Plan Antibiotics Regular diet, n.p.o. after midnight Laparoscopic cholecystectomy The risks and benefits of the procedure, including but not limited to, bleeding, infection, scar, numbness, pain, damage to surrounding structures, damage to common bile duct requiring additional surgery, conversion to an open procedure, were explained to the patient. He is understanding of the risks and wishes to proceed. Attestations Medical Necessity Statement*: Patient requires 2 more nights in the hospital for cholecystectomy and IV antibiotics Coding Level of Care Code Acute Scientific Informatics Project Leader for [facility] Diagnoses Acute calculous cholecystitis K80.00
--- NOTE | 2022-05-31 22:31 | PC.NURSE ---
PATIENT REQUESTED SOMETHING TO HELP HER SLEEP. PATIENT REQUEST FOR MED SENT TO DR ROE VIA SECURE MESSAGING. DR ROE PUT IN ORDER FOR DANIEL.
[2022-05-31] MEDS: diphenhydrAMINE 25 mg Capsule PO (22:35)
[2022-05-31] MEDS: HYDROcodone-acetaminophen 7.5-325 mg Tablet 1 TAB PO (22:35)
[2022-06-01] VITALS (23 sets, daily range): BP systolic 105–135; BP diastolic 70–89; PULSE 52–75; RESP 15–24; TEMP 36.4–37.1; O2SAT 90–98
[2022-06-01] MEDS: piperacillin-tazobactam 3.375 GM in sodium chloride 0.9% (plus) 50 ML IV ×2 (01:49→19:28)
--- NOTE | 2022-06-01 06:28 | PC.NURSE ---
20 GAUGE IV PACED IN RIGHT HAND. PATENT AND ASYMPTOMATIC.
[2022-06-01] MEDS: sodium chloride 0.9% 1,000 ML 30 ML IV (10:12)
--- NOTE | 2022-06-01 10:31 | W.PM.OPSUD ---
Surgery/Procedure H&P Update DATE OF PROCEDURE: June 01, 2022 DATE H&P PERFORMED: 05/31/22 PLANNED PROCEDURE: Operation Date: 06/01/22 10:50 Proposed Procedures p Laparoscopic Cholecystectomy(Not Applicable) - Silverio Mancia DO
--- NOTE | 2022-06-01 10:49 | ANES.PREANE2 ---
Pre-Anesthetic Assessment Height/Weight: Height 1.63 m Weight 106.141 kg Temp Pulse Resp BP Pulse Ox O2 Del Method 97.5 F L 75 18 127/82 98 06/01/22 08:12 06/01/22 08:12 06/01/22 08:12 06/01/22 08:12 06/01/22 08:12 06/01/22 08:12 Operation Date: 06/01/22 10:50 Proposed Procedures p Laparoscopic Cholecystectomy(Not Applicable) - Silverio Mancia DO Familial anesthetic complications: none Was Beta Murtaza taken within 24 hours: N/A Was Clonidine taken within 24 hours: N/A Last intake: Intake Last Liquid Date 05/31/22 Last Liquid Time 23:59 Last Solid Date 05/31/22 Last Solid Time 23:59 Social Tobacco (h/o smoking) and No alcohol Exam alert, oriented x 3, clear to auscultation bilaterally and regular rate & rhythm Airway Submandibular: within normal limits Cervical ROM: within normal limits Mallampati: Class II Dentition: false Metabolic Morbid Obesity Neuropsych Headache Anesthetic Plan ASA status: 2 Anesthesia: General (Mod RSI) Medications/Allergies Home Medications Medication Instructions Recorded Confirmed Last Taken Type acetaminophen 500 mg tablet 1,000 mg PO PRN PRN Pain 03/24/20 05/30/22 05/30/22 History (Tylenol Extra Strength) naproxen sodium 220 mg tablet 440 mg PO PRN PRN Pain 03/24/20 05/30/22 Unknown History (Aleve) Allergies Allergy/AdvReac Type Severity Reaction Status Date / Time No Known Allergies Allergy Verified 05/30/22 15:25 Current Medications Generic Name Dose Route Start Last Admin Trade Name Ladonna PRN Reason Stop Dose Admin Hydrocodone Bitart/Acetaminophen 1 tab 05/31/22 11:16 05/31/22 22:35 Hydrocodone-Acetaminophen 7.5-325 Mg Tablet PO 1 tab Q4H PRN Administration MODERATE PAIN Dextrose/Sodium Chloride 1,000 mls @ 100 mls/hr 05/31/22 01:00 05/31/22 15:43 Dextrose 5%-Sod Chloride 0.9% IV 100 mls/hr .Q10H CLAUDIA Administration Piperacillin Sod/Tazobactam 50 mls @ 12.5 mls/hr 05/31/22 09:00 06/01/22 01:49 Sod 3.375 gm/ Sodium Chloride IV 12.5 mls/hr Q8H CLAUDIA Administration Protocol Sodium Chloride 1,000 mls @ 30 mls/hr 06/01/22 10:00 06/01/22 10:12 Sodium Chloride 0.9% IV 06/02/22 09:59 30 mls/hr .Q24H CLAUDIA Administration Morphine Sulfate 4 mg 05/31/22 07:25 05/31/22 08:41 Morphine 4 Mg/Ml Sdv 1 Ml IVP 4 mg Q4H PRN Administration SEVERE PAIN PFSH Anesthesia Medical History Migraines Surgical History H/O: hysterectomy Hx of appendectomy Social History Smoking and tobacco status: former smoker Female Reproductive History Date of last menstrual period: 09/27/04 Data Anesthesia 05/30/22 16:18 05/30/22 16:18 Short CBC 05/30/22 Range/Units 16:18 WBC 7.6 (4.0-10.0) 10^3/uL Hgb 13.9 (11.5-15.3) g/dL Hct 41.9 (37.0-47.0) % MCV 89.5 (81-99) fl Plt Count 380 (130-400) 10^3/cmm Neut % (Auto) 56.7 % Neut # (Auto) 4.34 (1.8-7.7) 10^3/uL BMP 05/30/22 16:18 Sodium 138 Potassium 4.0 Chloride 101 Carbon Dioxide 28 BUN 7 Creatinine 0.6 Glucose 87 Calcium 9.5 Liver Function 05/30/22 Range/Units 16:18 Total Bilirubin 0.5 (0.15-1.2) mg/dL AST 10 (0-32) U/L ALT < 5 (0-33) U/L Alkaline Phosphatase 84 (35-105) U/L Albumin 3.8 (3.5-5.2) g/dL Urine 05/30/22 Range/Units 15:50 Urine Color [place] (Yellow) Urine Appearance Clear (CLEAR) Urine pH 5 (5-7) Ur Specific [place] 1.025 (1.005-1.030) Urine Protein Trace (Negative) Urine Glucose (UA) Norm (Normal) Urine Ketones Negative (Negative) Urine Nitrate Negative (Negative) Urine Bilirubin Neg (Negative) Ur Leukocyte Esterase Negative (Negative) Urine RBC None (0-2) /hpf Urine WBC None (0-5) /hpf Coags 05/30/22 16:18 C-Reactive Protein 5.8 H Cardiac Studies: No Data to Display
--- NOTE | 2022-06-01 11:19 | P.OP_ITS ---
Operative Report Date of procedure: June 01, 2022 Pre-op diagnosis: Acute calculus cholecystitis Post-op diagnosis: other (Chronic calculus cholecystitis) Procedure done: Laparoscopic cholecystectomy Specimens removed/disposition: Gallbladder Surgeon: Dr. Silverio Mancia DO Anesthesia: General Estimated blood loss (mL): 5 Complications: None apparent Brief History: Macho Ardon is a very pleasant 46-year-old homeless comes in with 1 day history of right upper quadrant abdominal pain. Ultrasound diagnosis clinical diagnosis was acute calculus cholecystitis. Laparoscopic cholecystectomy was indicated. Risks and benefits were explained and documented. Procedure: Patient was wheeled into the operative room and placed on the OR table in a supine position. Abdomen was inspected prepped and draped in usual sterile fashion. Time-out was performed and all present were in agreement. A 15 blade scalp was used to make a stab incision in the left upper quadrant and intra- abdominal insufflation was achieved using a Veress needle. After localizing the tissue incisions were made and a 5 millimeter trocar was placed into the umbilicus as well as 2 in the right upper quadrant. A 12 millimeter trocar was placed in the epigastrium. Gallbladder was grasped and elevated. The triangle of [place]ot was carefully dissected using blunt dissection and electrocautery until the triangle of [place] clearly identified. The cystic duct was clipped proximally and double clipped distally. The duct was then ligated proximally. The cystic artery was doubly clipped and ligated. The gallbladder was then removed from the liver bed using electrocautery. The gallbladder was removed from the abdomen using an Endo-Catch bag through the epigastric incision. The liver bed was inspected and no bleeding was seen. The abdomen was irrigated and suctioned. All ports removed. Skin was washed and dried. Incisions were closed with 3-0 and 4-O Vicryl in a subcuticular interrupted fashion. Skin glue was applied. Patient tolerated the procedure well.
[2022-06-01] MEDS: ondansetron 2 mg/ML SDV 2 mL 4 MG IVP ×2 (11:54→19:28)
[2022-06-01] MEDS: fentaNYL 50 mcg/mL INJ 2mL IVP (12:02)
[2022-06-01] MEDS: dextrose 5%-sod chloride 0.9% 1,000 ML 100 ML IV (16:00)
[2022-06-01] MEDS: HYDROcodone-acetaminophen 7.5-325 mg Tablet 1 TAB PO (16:06)
[2022-06-01] MEDS: heparin 5,000 unit/mL INJ 1 mL 5000 UNIT SUBCUT (16:06)
[2022-06-01] MEDS: morphine 4 mg/mL SDV 1 mL IVP (19:28)
[2022-06-02] VITALS (8 sets, daily range): BP systolic 104–146; BP diastolic 63–86; PULSE 58–102; RESP 15–18; TEMP 36.7–36.8; O2SAT 91–96
[2022-06-02] MEDS: HYDROcodone-acetaminophen 7.5-325 mg Tablet 1 TAB PO ×4 (00:05→21:42)
[2022-06-02] MEDS: heparin 5,000 unit/mL INJ 1 mL 5000 UNIT SUBCUT ×4 (00:05→20:51)
--- NOTE | 2022-06-02 02:55 | PC.NURSE ---
PATIENT COMPLAINING OF MILD CHEST PAIN AND BELCHING. THIS NURSE EDUCATED PATIENT THAT AMBULATION AND GETTING UP TO MOVE AROUND COULD IMPROVE CHEST PAIN/GAS AFTER SURGERY. PATIENT AMBULATED HALLWAY WITH IV POLE x3 AND REPORTED IMPROVED CHEST PAIN AND BELCHING. PATIENT NOW RESTING IN BED WATCHING TV, BED LOCKED IN LOWEST POSITION WITH SIDE RAILS UP AND EDUCATED TO PRESS CALL LIGHT IF PATIENT NEEDED ANYTHING. PATIENT STATED NO FURTHER NEEDS AT THIS TIME.
[2022-06-02] MEDS: morphine 4 mg/mL SDV 1 mL IVP (03:36)
[2022-06-02] MEDS: piperacillin-tazobactam 3.375 GM in sodium chloride 0.9% (plus) 50 ML IV ×3 (03:44→18:35)
--- NOTE | 2022-06-02 05:42 | PM.PN ---
Subjective Subjective: Patient doing well. Reports that pain is improved. Denies any nausea or vomiting Vitals/I&O/Wt Last Vital Signs Temp 98.4 F 06/03/22 04:00 Pulse 73 06/03/22 04:00 Resp 17 06/03/22 04:00 BP 111/71 06/03/22 04:00 Pulse Ox 94 06/03/22 04:00 O2 Del Method 06/02/22 15:24 O2 Flow Rate 6 06/01/22 11:39 06/02/22 06/03/22 06/03/22 22:59 06:59 14:59 Intake Total 530 / 2158.333 1290 / 3448.333 Balance 530 / 2158.333 1290 / 3448.333 Weight last 48 hrs Weight 252 lb 14.4 oz Physical Exam Narrative: General: No acute distress, awake alert and oriented x3 Abdomen soft, appropriately tender, nondistended, no guarding rebound or masses Incisions intact without erythema or exudate Data 05/30/22 16:18 05/30/22 16:18 A&P Assessment and plan (1) Cholecystitis: Plan Pain control Regular diet Case management for placement Attestations Medical Necessity Statement*: Patient requires at least 1 more night in the hospital for pain control and coordination with case management for placement as she is homeless. Coding Level of Care Code Acute Elastic Yarn Twister for [facility] Diagnoses Cholecystitis K81.9
[2022-06-02] MEDS: dextrose 5%-sod chloride 0.9% 1,000 ML 100 ML IV ×3 (10:29→23:43)
[2022-06-03] VITALS: BP 115/71; PULSE 72; RESP 17; TEMP 36.6; O2SAT 95
[2022-06-03 00:49] VITALS: RESP 16
[2022-06-03] MEDS: morphine 4 mg/mL SDV 1 mL IVP (00:49)
[2022-06-03] MEDS: piperacillin-tazobactam 3.375 GM in sodium chloride 0.9% (plus) 50 ML IV ×3 (02:15→17:44)
[2022-06-03] MEDS: HYDROcodone-acetaminophen 7.5-325 mg Tablet 1 TAB PO ×2 (03:53→17:44)
[2022-06-03 04:00] VITALS: BP 111/71; PULSE 73; RESP 17; TEMP 36.9; O2SAT 94
[2022-06-03] MEDS: heparin 5,000 unit/mL INJ 1 mL 5000 UNIT SUBCUT ×3 (04:27→21:42)
--- NOTE | 2022-06-03 07:41 | ANE.PACU2 ---
Inpatient post-anesthesia follow up: Airway intact: Yes Vital signs: Temperature 98.4 F Pulse Rate 73 Respiratory Rate 17 Blood Pressure 111/71 Pulse Oximetry 94 Oxygen Delivery Me thod [ Room Air Current Rate & Del alfredo] Oxygen Delivery Me thod Room Air Oxygen Flow Rate 6 Fraction of Inspir ed Oxygen Hydration adequate: Yes Nausea and vomiting: No Pain level: 3 Mental status: Baseline
[2022-06-03 08:00] VITALS: BP 104/57; PULSE 63; RESP 16; TEMP 36.9; O2SAT 94
--- NOTE | 2022-06-03 08:44 | PM.PN ---
Subjective Subjective: Patient reports that she is doing well. Denies any nausea or vomiting. Appropriate abdominal tenderness after major surgery. Vitals/I&O/Wt Last Vital Signs Temp 98.4 F 06/03/22 08:00 Pulse 63 06/03/22 08:00 Resp 16 06/03/22 08:00 BP 104/57 06/03/22 08:00 Pulse Ox 94 06/03/22 08:00 O2 Del Method 06/02/22 15:24 O2 Flow Rate 6 06/01/22 11:39 06/02/22 06/03/22 06/03/22 22:59 06:59 14:59 Intake Total 530 / 2158.333 1290 / 3448.333 Balance 530 / 2158.333 1290 / 3448.333 Weight last 48 hrs Weight 252 lb 14.4 oz Physical Exam Narrative: General: No acute distress, awake alert and oriented x3 Abdomen soft, appropriately tender, nondistended, no guarding rebound or masses Incisions intact without erythema or exudate Data 05/30/22 16:18 05/30/22 16:18 A&P Assessment and plan (1) Cholecystitis: Plan Pain control Regular diet Case management for placement Attestations Medical Necessity Statement*: Patient reports at least 1 more night in the hospital until housing can be sorted out and she can be placed, she is homeless. Coding Level of Care Code Acute Medical Esthetician for [facility] Diagnoses Cholecystitis K81.9
[2022-06-03] MEDS: dextrose 5%-sod chloride 0.9% 1,000 ML 100 ML IV ×2 (09:14→17:45)
[2022-06-03 12:00] VITALS: BP 122/74; PULSE 68; RESP 20; TEMP 36.8; O2SAT 97
[2022-06-03 20:00] VITALS: BP 136/89; PULSE 70; RESP 17; TEMP 36.6; O2SAT 96
[2022-06-04] VITALS: BP 138/78; PULSE 80; RESP 17; TEMP 36.9; O2SAT 99
[2022-06-04] MEDS: piperacillin-tazobactam 3.375 GM in sodium chloride 0.9% (plus) 50 ML IV ×2 (01:54→10:25)
[2022-06-04] MEDS: acetaminophen 325 mg Tablet 650 MG PO (03:40)
[2022-06-04 04:00] VITALS: BP 148/80; PULSE 71; RESP 17; TEMP 36.8; O2SAT 96
[2022-06-04] MEDS: dextrose 5%-sod chloride 0.9% 1,000 ML 100 ML IV (05:11)
[2022-06-04] MEDS: heparin 5,000 unit/mL INJ 1 mL 5000 UNIT SUBCUT ×2 (05:57→12:45)
[2022-06-04 08:00] VITALS: BP 117/75; PULSE 59; RESP 16; TEMP 36.9; O2SAT 94
[2022-06-04 12:00] VITALS: BP 118/77; PULSE 72; RESP 16; TEMP 36.6; O2SAT 95
[2022-06-04 15:43] VITALS: BP 137/87; PULSE 69; RESP 16; TEMP 36.4; O2SAT 95
--- NOTE | 2022-06-04 16:03 | PM.DCS ---
Discharge Providers Date of Admission: 05/30/22 21:28 Date of Discharge: June 04, 2022 Attending Provider at Admission: Silverio Mancia DO Attending Provider at Discharge: Silverio Mancia DO Diagnoses at Discharge Discharge Diagnosis (1) Cholecystitis: Status: Acute Reason for Visit Reason for Visit: abd pain Hospital Course Hospital Course This is a pleasant 46-year-old homeless female who came in with cholecystitis. She underwent laparoscopic cholecystectomy. She did well postoperatively and is being discharged in good condition Physical Exam Narrative: General : Patient is well developed , no acute distress, oriented x3 Head : Normal cephalic, a-traumatic. Ears : Pinnae and external canal are normal. Hearing is normal. Eyes : PERRLA, Sclera and injection are normal. No conjunctival discharge. Nose : Mucous membranes are without erythema. Throat : buccal mucosa is normal, gums are without significant recession or hypertrophy. Lungs : Equal chest rise bilaterally, no use of accessory muscles, trachea is midline. Cor : Rate and rhythm are normal. Abdomen : Soft, ND, NT, no g/r/m Incisions intact out erythema or ex date Extremities : No edema, no cyanosis or clubbing, dorsalis pedis pulses are present bilaterally, non-tender to palpation of calves. Upper extremities are normal bilaterally. Back : non-tender to palpation, no CVA tenderness. Neuro : CN II - XII intact, Upper and lower extremities have equal and full strength Discharge Data Studies Completed and Pending Completed Studies During Hospitalization Category Date Time Status CT abdomen pelvis w con* [id number] Stat Cat Scan 05/30/22 15:28 Completed US abdomen limited [id number] Stat Ultrasound 05/30/22 19:02 Completed Pending at discharge Category Date Time Status Pathology: Surgical [PTH] Routine Pth 06/01/22 11:15 Received Radiology Impressions Abdomen/Pelvis CT 05/30/22 15:28 IMPRESSION: 1. Question of mild gallbladder wall thickening 2. Lumbar stenosis 3. No definite acute finding. Abdomen Ultrasound 05/30/22 19:02 IMPRESSION: 1. Two gallstones. Findings suspicious for cholecystitis. 2. Mild fatty infiltration of the liver. 3. Incidental/nonacute findings are listed in the report. Laboratory Results WBC 7.6 10^3/uL (4.0-10.0) 05/30/22 16:18 RBC 4.68 10^6/uL (4.1-5.3) 05/30/22 16:18 Hgb 13.9 g/dL (11.5-15.3) 05/30/22 16:18 Hct 41.9 % (37.0-47.0) 05/30/22 16:18 MCV 89.5 fl (81-99) 05/30/22 16:18 MCH 29.7 pg (28.0-34.0) 05/30/22 16:18 MCHC 33.2 g/dL (30.0-36.0) 05/30/22 16:18 RDW 14.0 % (12.1-15.1) 05/30/22 16:18 Plt Count 380 10^3/cmm (130-400) 05/30/22 16:18 MPV 9.7 fL (7.4-10.4) 05/30/22 16:18 Neut % (Auto) 56.7 % 05/30/22 16:18 Lymph % (Auto) 33.0 % 05/30/22 16:18 [place] % (Auto) 7.5 % 05/30/22 16:18 Eos % (Auto) 2.0 % 05/30/22 16:18 Baso % (Auto) 0.5 % 05/30/22 16:18 Neut # (Auto) 4.34 10^3/uL (1.8-7.7) 05/30/22 16:18 Lymph # (Auto) 2.5 10^3/uL (0.8-4.8) 05/30/22 16:18 [place] # (Auto) 0.6 10^3/uL (0.2-0.9) 05/30/22 16:18 Eos # (Auto) 0.2 10^3/uL (0.0-0.8) 05/30/22 16:18 Baso # (Auto) 0.0 10^3/uL (0.0-0.1) 05/30/22 16:18 Nucleated RBC % (auto) 0 % 05/30/22 16:18 Nucleated RBCs # 0.0 /100WBC 05/30/22 16:18 Sodium 138 mmol/L (136-145) 05/30/22 16:18 Potassium 4.0 mmol/L (3.5-5.1) 05/30/22 16:18 Chloride 101 mmol/L (98-107) 05/30/22 16:18 Carbon Dioxide 28 mmol/L (22-29) 05/30/22 16:18 Anion Gap 13.0 (5-19) 05/30/22 16:18 BUN 7 mg/dL (6-20) 05/30/22 16:18 Creatinine 0.6 mg/dL (0.5-0.9) 05/30/22 16:18 GFR Calculation 108.6 mL/min (90-130) 05/30/22 16:18 Glucose 87 mg/dL (65-115) 05/30/22 16:18 Calculated Osmolality 283 mOsm/kg (285-295) L 05/30/22 16:18 Calcium 9.5 mg/dL (8.5-10.5) 05/30/22 16:18 Total Bilirubin 0.5 mg/dL (0.15-1.2) 05/30/22 16:18 AST 10 U/L (0-32) 05/30/22 16:18 ALT < 5 U/L (0-33) 05/30/22 16:18 Alkaline Phosphatase 84 U/L (35-105) 05/30/22 16:18 C-Reactive Protein 5.8 mg/L (0.0-4.9) H 05/30/22 16:18 Total Protein 7.9 g/dL (6.6-8.7) 05/30/22 16:18 Albumin 3.8 g/dL (3.5-5.2) 05/30/22 16:18 Globulin 4.1 g/dL (1.3-4.6) 05/30/22 16:18 Lipase 21 U/L (13-60) 05/30/22 16:18 HCG, Qual Negative (Negative) 05/30/22 16:18 Urine Color Brooke (Yellow) 05/30/22 15:50 Urine Appearance Clear (CLEAR) 05/30/22 15:50 Urine pH 5 (5-7) 05/30/22 15:50 Ur Specific [place] 1.025 (1.005-1.030) 05/30/22 15:50 Urine Protein Trace (Negative) 05/30/22 15:50 Urine Glucose (UA) Norm (Normal) 05/30/22 15:50 Urine Ketones Negative (Negative) 05/30/22 15:50 Urine Blood Neg (Negative) 05/30/22 15:50 Urine Nitrate Negative (Negative) 05/30/22 15:50 Urine Bilirubin Neg (Negative) 05/30/22 15:50 Urine Urobilinogen Norm mg/dL (Negative) 05/30/22 15:50 Ur Leukocyte Esterase Negative (Negative) 05/30/22 15:50 Urine RBC None /hpf (0-2) 05/30/22 15:50 Urine WBC None /hpf (0-5) 05/30/22 15:50 Ur Squamous Epith Cells None /hpf (0-5) 05/30/22 15:50 Amorphous Sediment Not Reportable 05/30/22 15:50 Urine Bacteria Trace /hpf (NONE) 05/30/22 15:50 Procedures Performed Laparoscopic lysis ectomy Vitals Last Vital Signs Temp 97.6 F 06/04/22 15:43 Pulse 69 06/04/22 15:43 Resp 16 06/04/22 15:43 BP 137/87 06/04/22 15:43 Pulse Ox 95 06/04/22 15:43 O2 Del Method 06/04/22 15:43 O2 Flow Rate 6 06/01/22 11:39 Discharge Plan Discharge Patient Disposition: Home Condition: Stable Prescriptions: New hydrocodone-acetaminophen 7.5-325 mg tablet 1 tab PO Q6H PRN (Reason: pain) Qty: 20 0RF Continued naproxen sodium [Aleve] 220 mg Tablet 440 mg PO PRN PRN (Reason: Pain) Held acetaminophen [Tylenol Extra Strength] 500 mg Tablet 1,000 mg PO PRN PRN (Reason: Pain) Hold Instructions: Resume on 06/08/22. Discharge Orders: Discharge Order (Routine); Ordered 06/04/22 Ordered By: iSlverio Mancia Referrals: Silverio Mancia DO [Physician] - 2 weeks Discharge Diet: Advance as tolerated Discharge Activity: Resume usual activity Patient Instructions: Opioid Safety, Post Anesthesia Care Discharge Attestations Time Spent in Discharge Care*: less than 30 min Quality Metrics Clinical Quality Measures [ No reported AMI, CVA or VTE this stay] Coding Level of Care Code Acute Chg FW DC note Diagnoses Cholecystitis K81.9
[2022-06-04] MEDS: HYDROcodone-acetaminophen 7.5-325 mg Tablet 1 TAB PO (16:22)
--- NOTE | 2022-06-04 16:24 | PC.NURSE ---
I called and spoke with [facility] pharmacy and Shanika states that payment will have to be received prior to filling her Rx. I spoke with Miguelangel Cruz, RN, primary nurse, and she states patient is refusing Rx, stating that she doesn't really need it . I called and spoke with Shanika with [facility]acy again and informed her of this. She verbalizes understanding and states she will cancel the order. I called [employer] and provided all information for patient's address, [address] [place] [id number]. They verbalize understanding and will arrive shortly for patient. I informed Miguelangel Cruz RN of this. She verbalizes understanding.
[2022-06-04 17:02] VITALS: BP 137/87; PULSE 69; RESP 16; TEMP 36.4; O2SAT 95
--- NOTE | 2022-06-04 17:03 | PC.NURSE ---
refused discharge pain meds.
== END 2022-06-04 17:04 | disposition home or self-care (01) | DRG 419 ==
LOC: ER 21:27 → MEDSURG 22:49
PROVIDERS: Physician Assistant; Admitting Provider Surgery; Emergency Provider Emergency Medicine; Visit Provider Surgery
PROC: 0FT44ZZ Resection of Gallbladder, Percutaneous Endoscopic Approach (ICD-10-PCS; CPT 47562; principal; 2022-06-01 10:30)
DX: K80.10 Calculus of gallbladder with chronic cholecystitis without obstruction (principal); Z87.891 Personal history of nicotine dependence; Z75.1 Person awaiting admission to adequate facility elsewhere; Z59.02 Unsheltered homelessness
CPT/HCPCS: 74177; 76705; 80053; 81001; 83690; 84703; 85025; 86140; 88304; 96361; 96372; 96374; 96375; 99285; J1100; J1644; J1885; J2250; J2270; J2405; J2543; J2704; J2710; J3010; J3490; J7030; J7040; J7042; Q9967